=== PATIENT | male | born 1940 | race Caucasian/White ===

== ENCOUNTER 2019-11-01 10:18 | Outpatient (CLI) | payer MEDICARE ==
--- NOTE | 2019-11-01 13:22 | Cat Scan Report ---
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 TECHNIQUE: Axial CT images were obtained through the abdomen and pelvis without IV contrast. All CT scans at [facility] location are performed using CT dose reduction for ALARA by means of automated exposure control. COMPARISON: None available. FINDINGS: LOWER CHEST: Calcified granulomas both lower lobes LIVER: No significant abnormality. GALLBLADDER: No significant abnormality. BILE DUCTS: No significant abnormality. PANCREAS: No significant abnormality. SPLEEN: No significant abnormality. ADRENALS: No significant abnormality. RIGHT KIDNEY and URETER: Multiple simple right renal cysts, largest of which measures 2.2 cm LEFT KIDNEY and URETER: Multiple simple left renal cysts, largest of which measures 6.5 cm STOMACH and SMALL BOWEL: Multiple surgical clips at GE junction. COLON: No significant abnormality. APPENDIX: No significant abnormality. PERITONEUM: No free fluid. No free air. No fluid collection. LYMPH NODES: No significant adenopathy. AORTA and ARTERIES: No significant abnormality. IVC and VEINS: No significant abnormality. URINARY BLADDER: No significant abnormality. REPRODUCTIVE ORGANS: Markedly enlarged heterogeneous prostate measuring 8.2 cm transversely. ADDITIONAL FINDINGS: None. SKELETAL SYSTEM: No significant abnormality. IMPRESSION: 1. Markedly enlarged heterogeneous prostate. 2. Simple bilateral renal cysts. 3. Postsurgical change at GE junction. Signer Name: Aramis Coronado MD Signed: 11/01/2019 1:17 PM Workstation Name: [id number]
== END 2019-11-01 10:19 | disposition home or self-care (01) ==
LOC: CT 10:18
PROVIDERS: ATTEND Urology
DX: Q61.2 Polycystic kidney, adult type (principal); N40.0 Benign prostatic hyperplasia without lower urinary tract symptoms
CPT/HCPCS: 74176